=== PATIENT | female | born 1975 | race Caucasian/White ===

== ENCOUNTER 2017-11-19 10:35 | Outpatient (RCR) | payer MEDICARE ==
[2017-11-16 10:57] VITALS: BP 127/88
[2017-11-16] MEDS: PROMETHAZINE INJ 25 MG/ML (PHENERGAN) AMP IV SCH (11:26)
[2017-11-16] MEDS: HYDROmorphone 2 MG/ML VIAL (DILAUDID) IV SCH (11:31)
[2017-11-16] MEDS: methylPREDNISolone 40 MG/ML (Solu-MEDROL) VIAL IV SCH (11:36)
[2017-11-16 12:12] VITALS: BP 127/88
[2017-11-16] MEDS: CATHETER FLUSH 10 ML SYR IV PRN (12:12)
[2017-11-17] MEDS: PROMETHAZINE INJ 25 MG/ML (PHENERGAN) AMP IV SCH (11:35)
[2017-11-17] MEDS: HYDROmorphone 2 MG/ML VIAL (DILAUDID) IV SCH (11:37)
[2017-11-17] MEDS: methylPREDNISolone 40 MG/ML (Solu-MEDROL) VIAL IV SCH (11:39)
[2017-11-17] MEDS: CATHETER FLUSH 10 ML SYR IV PRN (11:40)
[2017-11-17 11:45] VITALS: BP 126/95
[2017-11-18] MEDS: CATHETER FLUSH 10 ML SYR IV PRN ×2 (13:29→13:40)
[2017-11-18] MEDS: PROMETHAZINE INJ 25 MG/ML (PHENERGAN) AMP IV SCH (13:33)
[2017-11-18] MEDS: HYDROmorphone 2 MG/ML VIAL (DILAUDID) IV SCH (13:34)
[2017-11-18] MEDS: methylPREDNISolone 40 MG/ML (Solu-MEDROL) VIAL IV SCH (13:36)
[2017-11-18 13:47] VITALS: BP 127/99
[~2017-11-19] VITALS: Ht 165.1 cm; Wt 93.0 kg
[~2017-11-19 10:35] MED LIST: HEParin (CENTRAL IV FLUSH) 500 UNIT/5 ML SYR ONE; NS IV 1000 ML 1,000 ML IV SCH
[2017-11-19] MEDS ORDERED: HEParin (CENTRAL IV FLUSH) 500 UNIT/5 ML SYR ONE (11:03)
[2017-11-19] MEDS: CATHETER FLUSH 10 ML SYR IV PRN ×2 (11:14→11:22)
[2017-11-19] MEDS: PROMETHAZINE INJ 25 MG/ML (PHENERGAN) AMP IV SCH (11:15)
[2017-11-19] MEDS: HYDROmorphone 2 MG/ML VIAL (DILAUDID) IV SCH (11:18)
[2017-11-19] MEDS: methylPREDNISolone 40 MG/ML (Solu-MEDROL) VIAL IV SCH (11:20)
[2017-11-19 11:25] VITALS: BP 126/90
== END 2018-02-14 | disposition home or self-care (01) ==
LOC: SURG RCR 10:35
PROVIDERS: ATTEND Internal Medicine
DX: L12.0 Bullous pemphigoid (principal); E86.0 Dehydration; M19.90 Unspecified osteoarthritis, unspecified site
CPT/HCPCS: 96360; 96374; 96375